=== PATIENT | male | born 1960 | race Caucasian/White ===

== ENCOUNTER 2023-01-18 06:54 | Emergency (ER) | payer BC ==
[~2023-01-18] VITALS: Ht 167.6 cm; Wt 68.9 kg
[~2023-01-18 06:54] MED LIST: ADAL40PE SQ; ALPR0.5T8 PO; BUSP10TA3 PO; CELE200C PO; CHOL500011 PO; FOLI1TAB94 PO; METH25VI11 IJ; RANI300T7 PO
[2023-01-18] MEDS ORDERED: ACET-73 PO (09:33)
[2023-01-18 09:37] VITALS: BP 130/80; TEMP 98; O2SAT 99
== END 2023-01-18 09:37 | disposition home or self-care (01) ==
LOC: ER 06:57
DX: S62.512A Displaced fracture of proximal phalanx of left thumb, initial encounter for closed fracture (principal); Z86.2 Personal history of diseases of the blood and blood-forming organs and certain disorders involving the immune mechanism; Z79.899 Other long term (current) drug therapy; W22.8XXA Striking against or struck by other objects, initial encounter; Y93.89 Activity, other specified; Y92.89 Other specified places as the place of occurrence of the external cause; Y99.8 Other external cause status
CPT/HCPCS: 73130; A4663